=== PATIENT | male | born 1975 | race Caucasian/White ===

== ENCOUNTER → 2018-06-03 | Outpatient (CLI) | payer BC ==
[~2018-06-03] MED LIST: ASPI-482 PO; GABA600T2 PO; NEBI5TAB2 PO; PROM25VI5 PO; omprazole; other
--- NOTE | 2018-06-03 09:30 | RAD ---
Chest, 2 views, 06/03/2018: HISTORY: Cough The heart size and pulmonary vascularity are normal. No acute infiltrate is seen. There is no evidence of pleural fluid. IMPRESSION: No acute cardiopulmonary abnormality is detected. Electronically signed by: Hector Iraheta MD (06/03/2018 9:26 AM) [facility]
== END | disposition home or self-care (01) ==
LOC: DXRAD 09:06
PROVIDERS: ATTEND Physician Assistant Medical
DX: R07.89 Other chest pain (principal); R05 Cough; I10 Essential (primary) hypertension
CPT/HCPCS: 71046

== ENCOUNTER → 2018-06-08 | Outpatient (CLI) | payer BC ==
--- NOTE | 2018-06-08 16:13 | RAD ---
Indication: Chest pain for 3 weeks. Technique: Axial images and coronal and sagittal reformatted images are provided. Comparison is from August 16, 2015. One or more of the following individualized dose reduction techniques were utilized for this examination: 1. Automated exposure control 2. Adjustment of the mA and/or kV according to patient size 3. Use of iterative reconstruction technique Findings: Calcified granuloma is noted in the left lower lobe. There is no worrisome pulmonary nodule. There is no consolidation. There is no pleural effusion. Central airways are patent. The heart is not enlarged. Calcified left hilar lymph nodes are noted. There is no definite hilar or mediastinal adenopathy on this noncontrast study. There is fatty infiltration of the liver. Gallbladder is contracted. There is no adrenal mass. There are mild degenerative changes in the spine. IMPRESSION: 1. Granulomatous disease. 2. No acute thoracic findings. Electronically signed by: Juan F Miller MD (06/08/2018 4:10 PM) [facility]
== END | disposition home or self-care (01) ==
LOC: CT 14:05
PROVIDERS: ATTEND Physician Assistant Medical
DX: D71 Functional disorders of polymorphonuclear neutrophils (principal); K76.0 Fatty (change of) liver, not elsewhere classified; I10 Essential (primary) hypertension; Z79.01 Long term (current) use of anticoagulants
CPT/HCPCS: 71250

== ENCOUNTER → 2020-12-25 | Outpatient (CLI) | payer BC ==
[~2020-12-25] MED LIST changes: -GABA600T2 PO; +GABA600T7 PO
--- NOTE | 2020-12-25 16:48 | RAD ---
EXAM: 3 views of the left elbow DATE: 12/25/2020 3:33 PM INDICATION: Reason: left hand numness x 5 days / Spl. Instructions: / History: COMPARISON: No Prior FINDINGS: No elbow joint effusion. No acute fracture or dislocation. Soft tissue swelling at the dorsal aspect of the proximal forearm/elbow. IMPRESSION: No evidence of acute fracture or dislocation. Electronically signed by: Fabian Mckinley MD (12/25/2020 4:45 PM) [id number]
== END ==
LOC: RAD 15:23
PROVIDERS: ATTEND Orthopaedic Surgery
DX: M25.522 Pain in left elbow (principal)
CPT/HCPCS: 73080